=== PATIENT | female | born 1960 | race Hispanic/Latino ===

== ENCOUNTER 2020-05-02 19:38 | Emergency (ER) | payer SELFPAY ==
[2020-05-02] MEDS ORDERED: MECLIZINE HCL 12.5 MG TAB ONE (22:23)
[2020-05-02] MEDS ORDERED: ONDANSETRON 4 MG/2 ML VIAL ONE (22:23)
[2020-05-02] MEDS ORDERED: NA CHLORIDE 0.9% 1,000 ML ONE (22:23)
[2020-05-02 22:44] LABS: BUN Blood Urea Nitrogen 19 mg/dL (7-18); Bicarbonate 30 mmol/L (21-32); Glucose Level 110 mg/dL (74-106); Magnesium 2.6 mg/dL (1.8-2.4); Potassium 3.7 mmol/L (3.5-5.1); Sodium Level 143 mmol/L (136-145)
[2020-05-02 22:54] LABS: Urine Blood TRACE (NEG); Urine Glucose NEGATIVE (NEG); Urine Protein NEGATIVE (NEG); Urine pH 7.5 (5.0-7.0)
[2020-05-02 22:56] LABS: Absolute Lymphocytes (CBC) 1.2 K/uL (0.7-4.9); Basophils % 0.2 % (0-1.3); Hematocrit 37.8 % (36.0-45.0); Lymphocytes % 14.4 % (15.3-44.8)
--- NOTE | 2020-05-02 23:24 | EDPHYS ---
Physician Documentation [facility] Name: Smooth Maldonado Age: 60 yrs Sex: Female : 1960 Arrival Date: 05/02/2020 Time: 19:40 Bed 19 Private MD: ED Physician Raul Grayson HPI: 05/02 21:55 This 60 yrs old Female presents to ER via Ambulatory with complaints of cp Nausea/Vomiting, Weakness, Headache. 21:55 The patient presents to the emergency department with nausea, that is moderate, cp vomiting, that is intermittent. Onset: The symptoms/episode began/occurred today, at 18:00. Associated signs and symptoms: Pertinent positives: headache, dizziness. Severity of symptoms: in the emergency department the symptoms are unchanged despite home interventions. Historical: - Allergies: 19:59 No Known Allergies; ll1 - PSHx: 19:59 Tubal ligation; ovarian cyst; ll1 - Immunization history:: Adult Immunizations unknown. - Social history:: Smoking status: Patient denies any tobacco usage or history of. ROS: 21:57 Constitutional: Negative for body aches, chills, fever, poor PO intake. cp 21:57 Eyes: Negative for injury, pain, redness, and discharge. cp 21:57 ENT: Negative for ear pain, sore throat, difficulty swallowing, difficulty handling secretions. 21:57 Neck: Negative for pain with movement, pain at rest, stiffness. 21:57 Cardiovascular: Negative for chest pain, edema, palpitations. 21:57 Respiratory: Negative for cough, shortness of breath, wheezing. 21:57 Abdomen/GI: Positive for nausea and vomiting, Negative for abdominal pain, diarrhea, constipation. 21:57 : Negative for urinary symptoms. 21:57 Skin: Negative for rash. 21:57 Neuro: Positive for dizziness, headache, Negative for loss of consciousness, syncope, weakness. 21:57 All other systems are negative. Exam: 22:05 Constitutional: The patient appears in no acute distress, alert, awake, cp non-diaphoretic, non-toxic, well developed, well nourished. 22:05 Head/Face: Normocephalic, atraumatic. cp 22:05 Eyes: Periorbital structures: appear normal, Pupils: equal, round, and reactive to light and accomodation, Extraocular movements: intact throughout, Conjunctiva: normal, no exudate, no injection, Sclera: no appreciated abnormality, Lids and lashes: appear normal, bilaterally. 22:05 ENT: External ear(s): are unremarkable, Ear canal(s): are normal, clear, TM's: dullness, bilaterally, Nose: is normal, Mouth: Lips: moist, Oral mucosa: moist, Posterior pharynx: Airway: no evidence of obstruction, patent. 22:05 Neck: ROM/movement: is normal, is supple, without pain, no range of motions limitations, no nuchal rigidity. 22:05 Chest/axilla: Inspection: normal. 22:05 Cardiovascular: Rate: normal, Rhythm: regular, Heart sounds: murmur, not appreciated, Edema: is not appreciated, JVD: is not appreciated. 22:05 Respiratory: the patient does not display signs of respiratory distress, Respirations: normal, no use of accessory muscles, labored breathing, is not present, Breath sounds: are clear throughout, no decreased breath sounds, no stridor, no wheezing. 22:05 Abdomen/GI: Inspection: abdomen appears normal, Palpation: abdomen is soft and non-tender, in all quadrants. Vital Signs: 19:57 BP 131 / 68; Pulse 80; Resp 17; Temp 98.3; Pulse Ox 100% ; Weight 74.84 kg; Height 5 ll1 ft. 2 in. (157.48 cm); Pain 4/10; 21:50 BP 128 / 55; Pulse 64; Resp 16 S; Pulse Ox 100% on R/A; bb 22:41 BP 114 / 39; Pulse 64; Resp 14 S; Pulse Ox 99% on R/A; bb 23:04 BP 110 / 47; Pulse 74; Resp 16 S; Pulse Ox 100% on R/A; bb 23:47 BP 107 / 57; Pulse 78; Resp 16 S; Temp 97.8(O); Pulse Ox 100% on R/A; bb 19:57 Body Mass Index 30.18 (74.84 kg, 157.48 cm) ll1 NIH Stroke Scale Scores: 21:59 NIHSS Score: 0 cp MDM: 21:36 Patient medically screened. cp 23:00 Differential diagnosis: vertigo, CVA, migraine. cp 23:50 Data reviewed: vital signs, nurses notes, lab test result(s), radiologic studies, CT cp scan. 05/02 21:53 Order name: Urine Microscopic Only cp 05/02 21:53 Order name: CBC with Diff; Complete Time: 23:15 cp 05/02 23:16 Interpretation: Normal except: HELEN% 80.0; LYM% 14.4. cp 05/02 21:53 Order name: BMP; Complete Time: 23:15 cp 05/02 23:16 Interpretation: Normal except: CL 108; GLUC 110; BUN 19. cp 05/02 21:53 Order name: Magnesium; Complete Time: 23:15 cp 05/02 23:16 Interpretation: MG 2.6; Reviewed. cp 05/02 21:53 Order name: Urine Microscopic Only EDMS 05/02 22:36 Order name: Urine Dipstick--Ancillary (enter results); Complete Time: 23:15 ar5 05/02 23:16 Interpretation: Normal except: UBLD TRACE; UPH 7.5; UESTR TRACE. cp 05/02 21:53 Order name: Urine Dipstick-Ancillary (obtain specimen); Complete Time: 22:32 cp 05/02 21:53 Order name: IV; Complete Time: 22:40 cp 05/02 21:53 Order name: CT Head Brain wo Cont cp Administered Medications: 22:15 Drug: Meclizine 25 mg Route: PO; bb 23:06 Follow up: Response: Marked relief of symptoms bb 22:15 Drug: Zofran (Ondansetron) 4 mg Route: IVP; Site: right antecubital; bb 23:06 Follow up: Response: Marked relief of symptoms bb 22:15 Drug: NS 0.9% 1000 ml Route: IV; Rate: 1000 ml/hr; Site: right antecubital; bb 23:06 Follow up: IV Status: Completed infusion; IV Intake: 1000ml bb 23:40 Drug: TORadol - Ketorolac 15 mg Route: IVP; Site: right antecubital; bb 23:40 Drug: Benadryl 12.5 mg Route: IVP; Site: right antecubital; bb Disposition: 05/03 00:42 Co-signature as Attending Physician, Raul Grayson MD. pkl Disposition: 05/02/20 23:23 Discharged to Home. Impression: Nausea and vomiting, Dizziness and giddiness, Headache. - Condition is Stable. - Discharge Instructions: Dizziness, General Headache Without Cause, Nausea and Vomiting, Adult. - Prescriptions for Meclizine 25 mg Oral Tablet - take 1 tablet by ORAL route every 8 hours As needed; 30 tablet. Zofran 4 mg Oral Tablet - take 1 tablet by ORAL route every 12 hours As needed; 20 tablet. - Medication Reconciliation Form, Thank You Letter, Antibiotic Education, Prescription Opioid Use form. - Follow up: Private Physician; When: 1 - 2 days; Reason: Recheck today's complaints. - Problem is new. - Symptoms have improved. NIH Stroke Scale - NIH Stroke Score Date: 05/02/2020 Time: 21:59 Total Score = 0 1a. Level of Consciousness (LOC) - 0(Alert) 1b. Level of Consciousness (LOC) (Year \T\ Age) - 0(Both) 1c. LOC Commands (Open \T\ Closes Eyes/Soakers Supervisor) - 0(Both) 2. Best Gaze (Lateral Gaze Paresis) - 0(Normal) 3. Visual Field Loss - 0(No visual loss) 4. Facial Palsy - 0(Normal) 5a. Left Arm: Motor (10-second hold) - 0(No drift) 5b. Right Arm: Motor (10-second hold) - 0(No drift) 6a. Left Leg: Motor (5-second hold - always test supine) - 0(No drift) 6b. Right Leg: Motor (5-second hold - always test supine) - 0(No drift) 7. Limb Ataxia (finger/nose \T\ heel/hennessy - test with eyes open) - 0(Absent) 8. Sensory Loss (pinprick arms/legs/face) - 0(Normal) 9. Best Language: Aphasia (description/naming/reading) - 0(No aphasia) 10. Dysarthria (speech clarity - read or repeat words) - 0(Normal) 11. Extinction and Inattention (visual/tactile/auditory/spatial/personal) - 0(No abnormality) Initials: cp Signatures: Dispatcher [employer] EDMS Raul Grayson MD MD pkl Ballard, Brenda RN RN bb Aneesh Ramirez PA PA cp Lewis, Lynsay RN RN ll1 Corrections: (The following items were deleted from the chart) 05/02 23:51 23:23 05/02/2020 23:23 Discharged to Home. Impression: Nausea and vomiting; bb Dizziness and giddiness; Headache. Condition is Stable. Forms are Medication Reconciliation Form, Thank You Letter, Antibiotic Education, Prescription Opioid Use. Follow up: Private Physician; When: 1 - 2 days; Reason: Recheck today's complaints. Problem is new. Symptoms have improved. cp
--- NOTE | 2020-05-02 23:24 | ER ---
Nurse's Notes [facility] Name: Smooth Maldonado Age: 60 yrs Sex: Female : 1960 Arrival Date: 05/02/2020 Time: 19:40 Bed 19 Private MD: Diagnosis: Nausea and vomiting;Dizziness and giddiness;Headache Presentation: 05/02 19:57 Chief complaint: Patient states: Dizziness for 2 hours with N/V. Feels weak and shakey. ll1 No fever. Coronavirus screen: Client denies travel out of the [place] in the last 14 days. fatigue, headache, nausea, vomiting. Client presents with at least one sign or symptom that may indicate coronavirus-19. Standard/surgical mask placed on the client. Ebola Screen: Patient denies travel to an Ebola-affected area in the 21 days before illness onset. Initial Sepsis Screen: Does the patient meet any 2 criteria? No. Patient's initial sepsis screen is negative. Does the patient have a suspected source of infection? Yes: Other: headache/dizzy. Risk Assessment: Do you want to hurt yourself or someone else? Patient reports no desire to harm self or others. Onset of symptoms was May 02, 2020. 19:57 Method Of Arrival: Ambulatory ll1 19:57 Acuity: JIM 3 ll1 Triage Assessment: 21:49 GI: Reports vomiting. bb Historical: - Allergies: 19:59 No Known Allergies; ll1 - PSHx: 19:59 Tubal ligation; ovarian cyst; ll1 - Immunization history:: Adult Immunizations unknown. - Social history:: Smoking status: Patient denies any tobacco usage or history of. Screenin:47 Abuse screen: Denies threats or abuse. Nutritional screening: No deficits noted. bb Tuberculosis screening: No symptoms or risk factors identified. Fall Risk None identified. Assessment: 21:47 General: Appears in no apparent distress. uncomfortable, Behavior is calm, cooperative. bb Pain: Complains of pain in head. Neuro: Level of Consciousness is awake, alert, obeys commands, Oriented to person, place, time, situation. Cardiovascular: Heart tones present Capillary refill < 3 seconds Patient's skin is warm and dry. Respiratory: Airway is patent Respiratory effort is even, unlabored, Respiratory pattern is regular. GI: Abdomen is non-distended, Bowel sounds present X 4 quads. Abd is soft and non tender X 4 quads. : No signs and/or symptoms were reported regarding the genitourinary system. Derm: Skin is pink, warm \T\ dry. Musculoskeletal: Circulation, motion, and sensation intact. 22:41 Reassessment: Patient is alert, oriented x 3, equal unlabored respirations, skin bb warm/dry/pink. awaiting diagnostic results, family at bedside. 23:03 Reassessment: Patient is alert, oriented x 3, equal unlabored respirations, skin bb warm/dry/pink. IV site intact, patent, with fluids infusing, family at bedside. Pt states dizziness has improved. 23:46 Reassessment: Patient is alert, oriented x 3, equal unlabored respirations, skin bb warm/dry/pink. pt states the dizziness is better and verbalized understanding of and agrees to plan of care discharge instructions given pt assisted to exit via wheelchair accompanied by family. Vital Signs: 19:57 BP 131 / 68; Pulse 80; Resp 17; Temp 98.3; Pulse Ox 100% ; Weight 74.84 kg; Height 5 ll1 ft. 2 in. (157.48 cm); Pain 4/10; 21:50 BP 128 / 55; Pulse 64; Resp 16 S; Pulse Ox 100% on R/A; bb 22:41 BP 114 / 39; Pulse 64; Resp 14 S; Pulse Ox 99% on R/A; bb 23:04 BP 110 / 47; Pulse 74; Resp 16 S; Pulse Ox 100% on R/A; bb 23:47 BP 107 / 57; Pulse 78; Resp 16 S; Temp 97.8(O); Pulse Ox 100% on R/A; bb 19:57 Body Mass Index 30.18 (74.84 kg, 157.48 cm) ll1 NIH Stroke Scale Scores: 21:59 NIHSS Score: 0 cp ED Course: 19:40 Patient arrived in ED. cf2 19:58 Triage completed. ll1 19:59 Arm band placed on. ll1 21:25 Aneesh Ramirez PA is PHCP. cp 21:25 Raul Grayson MD is Attending Physician. cp 21:47 Carmen Rojas RN is Primary Nurse. bb 21:47 Patient has correct armband on for positive identification. Bed in low position. Call bb light in reach. Side rails up X 1. Adult w/ patient. Pulse ox on. NIBP on. Warm blanket given. 22:15 Initial lab(s) drawn, by me, sent to lab. Urine collected: clean catch specimen, clear. bb Inserted saline lock: 20 gauge in right antecubital area, using aseptic technique. Blood collected. 22:40 Urine Microscopic Only Sent. bb 22:44 CT Head Brain wo Cont In Process Unspecified. EDMS 23:46 No provider procedures requiring assistance completed. IV discontinued, intact, bb bleeding controlled, No redness/swelling at site. Pressure dressing applied. Administered Medications: 22:15 Drug: Meclizine 25 mg Route: PO; bb 23:06 Follow up: Response: Marked relief of symptoms bb 22:15 Drug: Zofran (Ondansetron) 4 mg Route: IVP; Site: right antecubital; bb 23:06 Follow up: Response: Marked relief of symptoms bb 22:15 Drug: NS 0.9% 1000 ml Route: IV; Rate: 1000 ml/hr; Site: right antecubital; bb 23:06 Follow up: IV Status: Completed infusion; IV Intake: 1000ml bb 23:40 Drug: TORadol - Ketorolac 15 mg Route: IVP; Site: right antecubital; bb 23:40 Drug: Benadryl 12.5 mg Route: IVP; Site: right antecubital; bb Intake: 23:06 IV: 1000ml; Total: 1000ml. bb Outcome: 23:23 Discharge ordered by . cp 23:47 Discharged to home via wheelchair, with family. bb 23:47 Condition: stable 23:47 Discharge instructions given to patient, family, Instructed on discharge instructions, follow up and referral plans. medication usage, Demonstrated understanding of instructions, follow-up care, medications, Prescriptions given X 2. 23:51 Patient left the ED. bb NIH Stroke Scale - NIH Stroke Score Date: 05/02/2020 Time: 21:59 Total Score = 0 1a. Level of Consciousness (LOC) - 0(Alert) 1b. Level of Consciousness (LOC) (Year \T\ Age) - 0(Both) 1c. LOC Commands (Open \T\ Closes Eyes/Shellfish Processing Machine Tender) - 0(Both) 2. Best Gaze (Lateral Gaze Paresis) - 0(Normal) 3. Visual Field Loss - 0(No visual loss) 4. Facial Palsy - 0(Normal) 5a. Left Arm: Motor (10-second hold) - 0(No drift) 5b. Right Arm: Motor (10-second hold) - 0(No drift) 6a. Left Leg: Motor (5-second hold - always test supine) - 0(No drift) 6b. Right Leg: Motor (5-second hold - always test supine) - 0(No drift) 7. Limb Ataxia (finger/nose \T\ heel/hennessy - test with eyes open) - 0(Absent) 8. Sensory Loss (pinprick arms/legs/face) - 0(Normal) 9. Best Language: Aphasia (description/naming/reading) - 0(No aphasia) 10. Dysarthria (speech clarity - read or repeat words) - 0(Normal) 11. Extinction and Inattention (visual/tactile/auditory/spatial/personal) - 0(No abnormality) Initials: cp Signatures: Dispatcher [employer] Carmen Lipscomb RN RN bb Aneesh Ramirez PA PA cp Olivia Michele cf2 Soledad Floyd RN RN ll1 Corrections: (The following items were deleted from the chart) 23:06 23:03 Reassessment: Patient is alert, oriented x 3, equal unlabored bb respirations, skin warm/dry/pink. IV site intact, patent, with fluids infusing, family at bedside bb
[2020-05-02 23:41] LABS: Urine Bacteria <20 /HPF (<20); Urine Culture Reflex Order NOT NEEDED; Urine RBC <5 /HPF (NONE SEEN)
[2020-05-02] MEDS ORDERED: DIPHENHYDRAMINE 50 MG/ML VIAL ONE (23:41)
[2020-05-02] MEDS ORDERED: KETOROLAC 30 MG/ML INJ ONE (23:41)
[2020-05-03 00:50] VITALS: O2SAT 100
[2020-05-03 00:54] VITALS: BP 107/57; TEMP 97.8
--- NOTE | 2020-05-03 10:50 | RAD REPORT ---
EXAM DESCRIPTION: CT - Head Brain Wo Cont - 05/03/2020 7:09 am CLINICAL HISTORY: Dizziness; Headache TECHNIQUE: Contiguous axial CT images obtained through the brain without IV contrast. Coronal and sa gittal reformatted images were provided. This exam was performed according to our departmental dose-optimization program, which includes autom ated exposure control, adjustment of the mA and/or kV according to patient size and/or use of iterati ve reconstruction technique. COMPARISON: None available for comparison FINDINGS: Brain: No significant white matter changes. No focal mass effect. Moon-white matter differ entiation is within normal limits. No hemorrhage. Ventricles: No ventriculomegaly or midline shift. Extra-axial spaces: No extra-axial collection or hemorrhage. Paranasal sinuses and mastoid air cells: Well-aerated Vessels: There is atherosclerotic disease of the internal carotid and vertebral arteries bilaterally. Bones: Unremarkable Soft tissues: Unremarkable IMPRESSION: No acute intracranial or extra-axial abnormality. Electronically signed by: Raquel Lay MD 05/02/2020 10:57 PM CDT Due to temporary technical issues with the PACS/Fluency reporting system, reports are being signed by the in house radiologist without review as a courtesy to ensure prompt reporting. The interpreting r adiologist is fully responsible for the content of the report.
== END 2020-05-02 23:51 | disposition home or self-care (01) ==
LOC: ER 19:38
DX: R42 Dizziness and giddiness (principal); R51.9 Headache, unspecified
CPT/HCPCS: 36415; 70450; 80048; 81003; 81015; 83735; 85025; 96361; 96374; 96375; 99284; J1200; J2405; J7030